=== PATIENT | male | born 1980 | race Caucasian/White ===

== ENCOUNTER 2017-10-02 09:41 | Emergency (ER) | payer OTHER ==
[~2017-10-02] VITALS: Ht 203.2 cm; Wt 109.8 kg
[~2017-10-02 09:41] MED LIST: BACTRIM DS TAB1 EACH PO; KEFLEX500 MG PO; NORCO 5-325 TA1 EACH PO
[2017-10-02 10:07] LABS: HEMATOCRIT 44.5 % (42.0-52.0); HEMOGLOBIN 15.1 gm/dL (14.0-18.0); MCH 30.8 pg (26.0-34.0); MCHC 33.8 g/dL (28.0-37.0); MCV 91.1 fL (80.0-100.0); MPV 8.9 fl. (7.2-11.1); NUCLEATED RBCS 0 /100WBC; PLATELET COUNT* 231 thou/uL (150-400); RBC 4.89 mil/uL (4.50-6.00); RDW-CV 13.3 % (10.5-14.5); WBC 14.9 thou/uL (4.0-11.0)
[2017-10-02 10:15] LABS: ANION GAP 6 mmol/L (7-16); BUN 13 mg/dL (7-18); CALCIUM 8.2 mg/dL (8.5-10.1); CHLORIDE 101 mmol/L (98-107); CO2 29 mmol/L (21-32); CREATININE 1.1 mg/dL (0.6-1.3); GLUCOSE 107 mg/dL (70-99); SODIUM 136 mmol/L (136-145)
[2017-10-02 10:20] LABS: APTT 30.5 Seconds (25.0-31.3); INR 1.2; PROTIME 11.4 Seconds (9.20-11.50)
[2017-10-02 10:26] LABS: ALBUMIN 3.6 g/dL (3.4-5.0); ALKALINE PHOSPHATASE 75 U/L (46-116); NT-PRO BRAIN NAT PEPTIDE 115 pg/mL (<300); SGOT 13 U/L (15-37); SGPT 19 U/L (30-65); TOTAL BILIRUBIN 0.7 mg/dL (<0.1-1.0); TROPONIN-I LEVEL <0.06 ng/mL (<0.06)
[2017-10-02 10:35] LABS: ABSOLUTE LYMPHOCYTES 0.9 thou/uL (0.8-5.3); ABSOLUTE MONOCYTES 0.4 thou/uL (0.0-1.2); ABSOLUTE NEUTROPHILS 13.6 thou/uL (1.6-8.1); PLATELET ESTIMATE ADEQUATE
[2017-10-02] MEDS ORDERED: AUGMENTIN 875-1 EACH PO (11:36)
[2017-10-02 11:43] VITALS: BP 108/64
--- NOTE | 2017-10-02 16:54 | EKG ---
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: : 1980 Requested By: Eddie Clemente Order Number: [id number] MD: Scooby Frost Measurements Intervals [place] Rate: 91 P: 63 [place]: 145 QRS: 71 QRSD: 135 T: 32 QT: 355 QTc: 437 Interpretive Statements Sinus rhythm Right bundle branch block ST elev, probable normal early repol pattern Baseline wander in lead(s) I,II,aVR No previous ECG available for comparison Electronically Signed On 10-02-2017 16:54:04 CDT by Scooby Frost [email or web address] <ELECTRONICALLY SIGNED> By: Scooby Frost MD, [facility] 10/02/17 1654 1004 Scooby Frost MD, [facility] /EPI
== END 2017-10-02 11:43 | disposition home or self-care (01) ==
LOC: M.ERS 09:41
PROVIDERS: Family Medicine
DX: R53.1 Weakness (principal)